=== PATIENT | female | born 1990 | race Caucasian/White ===

== ENCOUNTER 2020-09-02 08:33 | Emergency (ER) | payer OTHER, SELFPAY ==
--- NOTE | 2020-09-02 08:38 | ED.GENADULT ---
HPI - General Adult General Chief complaint: Upper Respiratory Infection Stated complaint: Knot on side of face Time Seen by Provider: 09/02/20 08:50 Source: patient and RN notes reviewed Mode of arrival: ambulatory Limitations: no limitations History of Present Illness HPI narrative: 30-year-old female presents concern for left-sided jaw pain. Reports she woke up this morning with pain to the left side of her face/jaw area. Reports she has a history of TMJ and wears a night clerk. Reports she wore her night clerk last night. Reports her typical jaw pain is bilateral. She denies right-sided jaw pain. She denies redness, fever, ear pain, sore throat, dental pain, difficulty swallowing. She denies intervention. Reports no pain at rest, reports tenderness to palpation and pain with opening and closing of the jaw MD complaint: Jaw pain Related Data Home Medications Medication Instructions Recorded Confirmed No Home Medications 09/02/20 09/02/20 Allergies Allergy/AdvReac Type Severity Reaction Status Date / Time No Known Allergies Allergy Verified 09/02/20 08:54 Review of Systems Review of Systems: Narrative: CONSTITUTIONAL: Denies malaise, chills, sweats, or fever. EYES: Denies visual changes, redness, or discharge. ENT: Denies dental pain, rhinorrhea, congestion, sinus pain, otalgia or sore throat. CARDIOVASCULAR: Denies chest pain, palpitations, or edema. RESPIRATORY: Denies cough or dyspnea. SKIN: Denies rash, erythema, warmth MUSCULOSKELETAL: Reports left jaw pain. Denies body aches NEUROLOGIC: Denies headache. All systems reviewed & are unremarkable except as noted in HPI and below PMFSH Social History Social History Gender identity (if verbalized by the patient): Female Comments At time of signature, agree with nursing past medical, surgical, social and family history. There is no relevant family history pertinent to the presenting complaint Exam Narrative: Exam Narrative: GENERAL: Well-appearing, well-nourished, and in no acute distress. HEAD: Normocephalic, atraumatic. EYES: PERRLA, conjunctivae clear ENT: Nares clear. Mucous membranes moist. TM pearly flowers with sharp light reflex bilaterally; no tragal tenderness. Oropharynx without erythema or lesions. Tonsils not enlarged and without exudate. No palpable nodules on the left face, cheek, oral cavity. Tenderness at TMJ to palpation and with range of motion, no clicking noted NECK: Supple. No lymphadenopathy. No jugular venous distension, thyromegaly, or carotid bruits. Carotids were easily palpable bilaterally. CHEST: No respiratory distress. Speaks in full sentences. HEART: Regular rate and rhythm. SKIN: Warm, dry, no rash. NEURO: Alert and oriented x3. PSYCH: Normal mood and affect Course Course Emergency Course: Patient is aware of diagnosis, understands and agrees to treatment plan. Anticipatory guidance given. Patient agrees to follow-up as directed and is aware of reasons to seek care at the emergency department. Portions of this record may have been created with voice recognition software Vital Signs Vital signs: Vital Signs Temperature 98.2 F 09/02/20 08:49 Pulse Rate 86 09/02/20 08:49 Respiratory Rate 16 09/02/20 08:49 Blood Pressure 120/75 09/02/20 08:49 Pulse Oximetry 100 09/02/20 08:49 Temperature 98.2 F 09/02/20 08:49 Pulse Rate 86 09/02/20 08:49 Respiratory Rate 16 09/02/20 08:49 Blood Pressure 120/75 09/02/20 08:49 Pulse Oximetry 100 09/02/20 08:49 Reviewed. Medical Decision Making MDM Narrative Medical decision making narrative: Exam findings show no acute concerns or changes; patient is non-toxic appearing and is in no distress. Patient is appropriate for outpatient treatment and follow-up. Differential Diagnosis Differential Diagnosis: dental abscess. cellulitis, temporal arthritis, parotitis, parotid duct obstruction, tmj Vital Signs Vital Signs: Vital Signs Temperature
[2020-09-02 08:49] VITALS: BP 120/75; PULSE 86; RESP 16; TEMP 36.8; O2SAT 100
== END 2020-09-02 09:05 | disposition home or self-care (01) ==
PROVIDERS: Emergency Provider Nurse Practitioner
DX: R68.84 Jaw pain (principal)
CPT/HCPCS: 99211; G0463